=== PATIENT | female | born 1940 | race Two or more races ===

== ENCOUNTER 2024-10-15 11:34 | Emergency (ER) | payer MEDICARE, SELFPAY ==
[2024-10-15 11:35] VITALS: BMI 45.0
--- NOTE | 2024-10-15 12:09 | EKG_ITS ---
[facility] Test Date: 2024-10-15 Pat Name: DISHA JIMENEZ Department: Room: - Gender: Female [employer]: : [id number] Requested By: Shan Cortes Order Number: [id number] Reading MD: Shan Cortes Measurements Intervals [place] Rate: 74 P: 35 KS: 144 QRS: 12 QRSD: 91 T: 45 QT: 365 QTc: 407 Interpretive Statements SINUS RHYTHM Compared to ECG 09/19/2023 06:06:26 Atrial fibrillation no longer present ST (T wave) deviation no longer present /store/S0/[id number]/ecg/[id number].pdf
--- NOTE | 2024-10-15 12:09 | XR_ITS ---
Examination: AP chest single view Technique one AP upright portable chest single view Exam date and time: 12/13/2024 1245 hrs. Comparison September 19, 2023 Indications: Increasing shortness of breath beginning 2 days ago. Findings: Gudl-[id number] heart failure Moderate enlargement cardiac contour Prominent vascular congestion with perihilar edema Consider superimposed pneumonia right lung base Impression: Einf-bt-nizkoyat heart failure Consider superimposed pneumonia right lung base
--- NOTE | 2024-10-15 12:10 | PD.EDADULT ---
ED General RME/HPI General Chief complaint: Shortness of Breath/Dyspnea Stated complaint: SOB, cough Time Seen by Provider: 10/15/24 12:08 Arrival date/time: 10/15/24 11:34 CC: Shortness of breath HPI patient has had 2 days of shortness of breath has a history of asthma took her rescue inhaler but still continues to be short of breath. Dr. Parikh is her PCP Dr. Wallace is her student services dean. Patient denies any chest pain does not state that she has a fever but the head did not feel warm to touch. Patient is awake alert oriented with subtle expiratory wheezing. No tachypnea. Related Data Home Medications ?Medication ?Instructions ?Recorded ?Confirmed furosemide 40 mg tablet (Lasix) 40 mg PO DAILY 09/19/23 11/20/23 tiotropium bromide 1.25 1.25 puff inhalation DAILY 09/19/23 11/20/23 mcg/actuation mist for inhalation (Spiriva Respimat) albuterol sulfate 90 mcg/actuation 1 inh inhalation QID PRN Shortness 11/20/23 11/20/23 aerosol inhaler Of Breath amiodarone 200 mg tablet 200 mg PO DAILY 11/20/23 11/20/23 apixaban 5 mg tablet (Eliquis) 2.5 mg PO BID 11/20/23 11/20/23 Previous Rx's ?Medication ?Instructions ?Recorded omeprazole 40 mg capsule,delayed 40 mg PO QDAY #30 caps 09/23/23 release doxycycline hyclate 100 mg capsule 100 mg PO QDAY #14 caps 10/15/24 Allergies Allergy/AdvReac Type Severity Reaction Status Date / Time codeine Allergy Unknown Verified 11/20/23 14:26 Penicillins Allergy Unknown Verified 11/20/23 14:26 Review of Systems Review of Systems Narrative Review of Systems: GEN: No fever, no chills, no weight loss EYES: No discharge, no visual changes, no pain HEENT: No ear pain, no congestion, no sore throat PULM: + shortness of breath, no cough, no congestion, +wheezing CV: No chest pain, no dyspnea on exertion, no palpitations GI: No nausea, no vomiting, no diarrhea, no pain, no constipation : No frequency, no urgency, no dysuria MUSC/SKEL: No joint pain, no back pain SKIN: No rash PSYCH: No hallucinations, no depression HEME/LYMPH: No easy bleeding or bruising tendencies NEURO: No weakness, no headache ED Exam Narrative Physical exam: [General: Obese not in any acute distress Head normocephalic HEENT: Within acceptable limits Neck is supple nontender Chest equal chest rise nontender to palpation Respiratory: Subtle end expiratory wheezing, no nasal flaring hand washer muscle work no tachypnea. CV: Rate rhythm is regular no murmurs rubs or clicks Abdomen is distended secondary to body habitus soft nontender no masses positive bowel sounds all 4 quadrants Back: No CVA tenderness no spinous process tenderness from cervical spine thoracic and lumbar spine Skin: Intact no petechiae rash induration ulceration or crepitus Extremities: Moving all extremity against resistance cap refill less than 2 seconds neurosensory intact Neuro: Awake alert oriented x3 Glascow coma 15 no focal deficits] Course Quality Measures none Orders Category Date Time Status EKG (ED ONLY) *Do not use* NOW Care 10/15/24 12:09 Completed EKG (ED Only) Stat Exams 10/15/24 12:09 Draft XR chest 1V Stat Exams 10/15/24 12:09 Completed B-Type Natriuretic Peptide Stat Lab 10/15/24 12:52 Completed CBC Stat Lab 10/15/24 12:52 Completed Comprehensive Metabolic Panel Stat Lab 10/15/24 12:52 Completed Drug Screen,Urine Stat Lab 10/15/24 12:45 Completed LDH (Lactate Dehydrogenase) Stat Lab 10/15/24 12:52 Completed Magnesium Stat Lab 10/15/24 12:52 Completed Partial Thromboplastin Time Stat Lab 10/15/24 12:52 Completed Prothrombin Time with INR Stat Lab 10/15/24 12:52 Completed Troponin I Stat Lab 10/15/24 12:52 Completed Urinalysis Stat Lab 10/15/24 12:45 Completed Albuterol/Ipratr Rt Sandra [Duoneb Rt Sandra] Med 10/15/24 12:09 Discontinued 3 ml INH X1 ONE cefTRIAXone [Rocephin] 1,000 mg Med 10/15/24 13:55 Discontinued Lidocaine 1% 20 ml [Xylocaine 1% 20 ML] 2.1 ml IM X1 Vital Signs Vital signs: Vital Signs Temperature 98.4 F 10/15/24 12:12 Pulse Rate 75 10/15/24 12:12 Respiratory Rate 18 10/15/24 12:12 Blood Pressure 196/93 H 10/15/24 12:12 Pulse Oximetry (%) 98 10/15/24 12:12 Oxygen Delivery Method Room Air 10/15/24 12:12 [facility] Patient data External records reviewed:: [facility] previous records Clinical information provided by:: patient Social determinants that could affect healthcare access:: none Patient has the following chronic illnesses:: Asthma CHF How is presenting disease/condition affected by chronic disease/condition?: exacerbated by Evaluation data The following diagnostics were reviewed and interpreted by me:: lab results, radiology exam(s) and EKG tracing(s) Lab and/or radiology exams considered but not ordered:: EKG performed at 1218 shows a ventricular rate of 74 MO interval 144 QRS of 91 QTc of 393 this is a normal sinus rhythm. CBC shows no leukocytosis stable anemia of 10 and 31. CMP shows no significant electrolyte imbalances BUN is elevated 29 however this is commensurate with prior lab draws. Creatinine is unremarkable no transaminitis or T. bili elevation. Troponin is 0.023 BNP is mildly elevated. Chest x-rays interpreted by me read by radiology shows mild heart failure with a probable superimposed pneumonia. The patient has been mildly tachypneic but no anemia fever leukocytosis at this time given the patient's age and chronic conditions patient will be started on antibiotics and discharged home. Interpretation Summary: Pneumonia shortness of breath Medications Medications considered but not ordered:: None Medication administrations:: Medication Administration History Discontinued Medications Albuterol/Ipratropium (Albuterol/Ipratropium (Duoneb) Rt Sandra 3 Ml Nebu) 3 ml INH X1 ONE Stop: 10/15/24 12:10 Last Admin: 10/15/24 13:59 Dose: 3 ml Documented By: AA Ceftriaxone Sodium 1,000 mg/ (Lidocaine HCl 2.1 ml) 0 mg IM X1 ONE Stop: 10/15/24 13:56 Last Admin: 10/15/24 14:51 Dose: 1,000 mg Documented By: None Consultations Consultation(s) initiated? (list below): No Diagnosis Differential Diagnosis ED Complaint MDM: Pneumonia CHF COPD Most likely diagnosis given after review of the tests above:: Pneumonia Admission Indicated Admission indicated?: not indicated Explain why admission is indicated or not indicated:: Stable for outpatient follow-up Admission Request Was there a request for admission?: No Disposition Plan Disposition Plan: Discharge Discharge Attestation Discharge Attestation: The patient and all family members were given an opportunity to ask questions and understood the discharge instructions. Discharge instructions specifically effects, indications for sooner follow up or return to the emergency department, and the expected course of current diagnosis. Patient condition: Stable Medical Decision Making Differential Diagnosis Differential Diagnosis: Pneumonia CHF COPD Lab Data 10/15/24 12:52 10/15/24 12:52 Labs: Lab Results 10/15/24 10/15/24 Range/Units 12:45 12:52 WBC 6.0 (3.6-11.0) Thou/mm3 RBC 3.34 L (4.00-5.20) Miln/mm3 Hgb 10.1 L (12.0-16.0) g/dL Hct 31.5 L (36.0-46.0) % MCV 94 (80-100) fL MCH 30.2 (25.0-35.0) pg MCHC 32.1 (31.0-37.0) g/dl RDW Std Deviation 43.9 (36.4-46.3) fL Plt Count 173 (140-440) Thou/mm3 Neut % (Auto) 53 (37-80) % Lymph % (Auto) 35 (10-50) % Holt % (Auto) 6 (0-12) % Eos % (Auto) 6 (0-10) % Baso % (Auto) 1 (0-2.5) % Neut # (Auto) 3.2 (1.8-7.7) Thou/mm3 Lymph # (Auto) 2.1 (1.0-4.8) Thou/mm3 Holt # (Auto) 0.4 (0.0-0.8) Thou/mm3 Eos # (Auto) 0.3 (0.0-0.5) Thou/mm3 Baso # (Auto) 0.0 (0.0-0.2) Thou/mm3 Immature Gran # (Auto) 0.01 H (0.00-0.00) Thou/mm3 Absolute Nucleated RBC 0.00 (0.00-0.00) Thou/mm3 Immature Gran % 0 (0-0) % Nucleated RBC % 0 (0) /100 WBC PT 10.8 (9.0-12.2) Seconds INR 1.0 (0.9-1.3) APTT 29.6 (22.0-36.0) Seconds Sodium 139 (136-145) mMol/L Potassium 4.6 (3.4-5.1) mMol/L Chloride 106 (98-107) mMol/L Carbon Dioxide 24.2 (20.0-31.0) mMol/L Anion Gap 9 (7-16) BUN 26 H (9-23) mg/dL Creatinine 0.9 (0.6-1.3) mg/dL Estim Creat Clear Calc 47.0 L (>60) mL/min eGFR > 60 (60 - ) See Note BUN/Creatinine Ratio 29 H (12-20) Ratio Glucose 81 (74-106) mg/dL Calculated Osmolality 281 (275-295) Calcium 10.4 (8.3-10.6) mg/dL Corrected Calcium 10.4 H (8.5-10.1) mg/dL Magnesium 2.2 (1.6-2.6) mg/dL Total Bilirubin 0.6 (0.3-1.2) mg/dL AST 19 (0-34) U/L ALT 17 (10-49) U/L Alkaline Phosphatase 78 (46-116) U/L Lactate Dehydrogenase 230 (120-246) U/L Troponin I 0.023 (0.0-0.045) ng/mL B-Natriuretic Peptide 244 H (0-100) pg/mL Total Protein 7.6 (5.7-8.2) gm/dL Albumin 4.8 (3.4-4.8) gm/dL Globulin 2.8 (2.3-3.5) gm/dL Albumin/Globulin Ratio 1.7 (1.2-2.2) Ur Collection Type Clean Catch Urine Color Colorless A (Lt Yel-Yel) Urine Clarity Clear (Clear/Hazy) Urine pH 6.5 (5.0-7.0) Ur Specific [place] 1.015 (1.001-1.035) Urine Protein 1+ A (Neg - Trace) Urine Glucose (UA) Negative (Negative) Urine Ketones Negative (Negative) Urine Blood Trace (Negative) Urine Nitrite Negative (Negative) Urine Bilirubin Negative (Negative) Urine Urobilinogen (Auto) Negative (0.0-1.0) mg/dL Ur Leukocyte Esterase Negative (Negative) Urine RBC 4 H (0-3) /hpf Urine WBC 3 (0-5) /hpf Ur Squamous Epith Cells 2 (0-5) /hpf Urine Bacteria None (None) Urine Opiates Screen Negative (Negative) Urine Fentanyl Screen Negative (Negative) Ur Barbiturates Screen Negative (Negative) U Amphetamin/Meth Scrn Negative (Negative) U Benzodiazepines Scrn Negative (Negative) U Cocaine Metab Screen Negative (Negative) U Marijuana (THC) Screen Negative (Negative) Discharge Plan Plan Patient Disposition: HOME (Self Care) Patient condition on transfer: Stable Prescriptions/Referrals Prescriptions/Med Rec: New doxycycline hyclate 100 mg capsule 100 mg PO QDAY Qty: 14 0RF No Action furosemide [Lasix] 40 mg tablet 40 mg PO DAILY Patient Comments: TAKE 1 TABLET BY MOUTH ONCE A DAY FOR LEG SWELLING FOR 30 DAYS Rx Instructions: x2 week Spiriva Respimat 1.25 mcg/actuation mist 1.25 puff INHALATION DAILY Patient Comments: INHALE 2 PUFFS BY MOUTH EVERY DAY Rx Instructions: daily omeprazole 40 mg capsule,delayed release(DR/EC) 40 mg PO QDAY Qty: 30 2RF amiodarone 200 mg tablet 200 mg PO DAILY Patient Comments: TAKE 1 TABLET BY MOUTH EVERY DAY Eliquis 5 mg tablet 2.5 mg PO BID Patient Comments: TAKE 1 TABLET BY MOUTH TWICE A DAY albuterol sulfate 90 mcg/actuation Hfa Aerosol Inhaler 1 inh INHALATION QID PRN (Reason: Shortness Of Breath) Referrals: Gen Parikh MD [Primary Care Provider] - In 1 week Problem List Clinical Impression: Pneumonia, Shortness of breath Patient/Caregiver Discharge Instructions Education Materials: ED Pneumonia (Adult) Additional Instructions: Take the medications as prescribed, follow-up with your primary care doctor in 3 to 4 days if there is worsening of symptoms in spite of the medications return the emergency room immediately for further evaluation. Print Language: Armenian Stand Alone Forms: Tanesha Award Info., Patient Portal Info Letter PA/FOOD COURT TEAM MEMBER Supervising Physician PA/FOOD COURT TEAM MEMBER Supervising Physician: Shan Rush ENP
[2024-10-15 12:12] VITALS: BP 196/93; PULSE 75; RESP 18; TEMP 36.9; O2SAT 98
[2024-10-15 13:06] LABS: Collection Type, Urine Clean Catch
[2024-10-15 13:13] LABS: Basophils % (Auto) 1 % (0-2.5); Eosinophils # (Auto) 0.3 Thou/mm3 (0.0-0.5); Eosinophils % (Auto) 6 % (0-10); Hematocrit 31.5 % (36.0-46.0); Hemoglobin 10.1 g/dL (12.0-16.0); Immature Granulocytes % (Auto) 0 % (0-0); Immature Granulocytes Auto 0.01 Thou/mm3 (0.00-0.00); Lymphocytes # (Auto) 2.1 Thou/mm3 (1.0-4.8); Lymphocytes % (Auto) 35 % (10-50); Mean Corpuscular HGB Conc 32.1 g/dl (31.0-37.0); Mean Corpuscular Hemoglobin 30.2 pg (25.0-35.0); Mean Corpuscular Volume 94 fL (80-100); Monocytes # (Auto) 0.4 Thou/mm3 (0.0-0.8); Monocytes % (Auto) 6 % (0-12); Neutrophils # (Auto) 3.2 Thou/mm3 (1.8-7.7); Neutrophils % (Auto) 53 % (37-80); Nucleated Red Blood Cell % 0 /100 WBC (0); Platelet Count 173 Thou/mm3 (140-440); RDW Standard Deviation 43.9 fL (36.4-46.3); Red Blood Count 3.34 Miln/mm3 (4.00-5.20)
[2024-10-15 13:22] LABS: Partial Thromboplastin Time 29.6 Seconds (22.0-36.0); Prothrombin Time 10.8 Seconds (9.0-12.2)
[2024-10-15 13:24] LABS: B-Type Natriuretic Peptide 244 pg/mL (0-100)
[2024-10-15 13:28] LABS: Alanine Aminotransferase 17 U/L (10-49); Albumin, Serum 4.8 gm/dL (3.4-4.8); Albumin/Globulin Ratio 1.7 (1.2-2.2); Alkaline Phosphatase 78 U/L (46-116); Anion Gap 9 (7-16); Aspartate Amino Transferase 19 U/L (0-34); BUN/Creatinine Ratio 29 Ratio (12-20); Bilirubin,Total 0.6 mg/dL (0.3-1.2); Blood Urea Nitrogen 26 mg/dL (9-23); Calcium 10.4 mg/dL (8.3-10.6); Calcium (Corrected) 10.4 mg/dL (8.5-10.1); Carbon Dioxide 24.2 mMol/L (20.0-31.0); Chloride 106 mMol/L (98-107); Creatinine (Component) 0.9 mg/dL (0.6-1.3); Globulin 2.8 gm/dL (2.3-3.5); Glucose 81 mg/dL (74-106); LDH (Lactate Dehydrogenase) 230 U/L (120-246); Magnesium 2.2 mg/dL (1.6-2.6); Osmolality,Calculated 281 (275-295); Potassium 4.6 mMol/L (3.4-5.1); Sodium 139 mMol/L (136-145); Total Protein 7.6 gm/dL (5.7-8.2); Troponin I 0.023 ng/mL (0.0-0.045); eGFR > 60 See Note
[2024-10-15 13:29] LABS: Amphetamine/Methamp Scrn,U Negative (Negative); Barbiturate Screen,Urine Negative (Negative); Benzodiazepines Screen,Urine Negative (Negative); Benzoylecgonine Screen, Ur Negative (Negative); Fentanyl Screen,Urine Negative (Negative); Opiate Screen,Urine Negative (Negative); THC Screen,Urine Negative (Negative)
[2024-10-15 13:32] LABS: Bilirubin,Urine Negative (Negative); Blood,Urine Trace (Negative); Clarity,Urine Clear (Clear/Hazy); Color,Urine Colorless (Lt Yel-Yel); Glucose, Urine Negative (Negative); Ketones,Urine Negative (Negative); Leukocyte Esterase,Urine Negative (Negative); Nitrite,Urine Negative (Negative); PH,Urine 6.5 (5.0-7.0); Protein,Urine 1+ (Neg - Trace); RBC,Urine 4 /hpf (0-3); Specific Gravity,Urine 1.015 (1.001-1.035); Squamous Epithelial Cell,Urine 2 /hpf (0-5); Urobilinogen,Urine Negative mg/dL (0.0-1.0); WBC,Urine 3 /hpf (0-5)
[2024-10-15] MEDS: ALBUTEROL/IPRATROPIUM (Duoneb) RT SOL 3 ML NEBU INH (13:59)
[2024-10-15 14:02] VITALS: PULSE 69; RESP 18; O2SAT 98
[2024-10-15] MEDS: cefTRIAXone 1,000 MG, LIDOCAINE 1% 20 ML 2.1 ML IM (14:51)
== END 2024-10-15 15:00 | disposition home or self-care (01) ==
PROVIDERS: Registered Nurse General Practice; Emergency Provider Emergency Medicine; PCP Family Medicine
DX: J18.9 Pneumonia, unspecified organism (principal)
CPT/HCPCS: 36415; 71045; 80053; 80307; 81001; 83615; 83735; 83880; 84484; 85025; 85610; 85730; 93005; 94640; 96372; 99283; A9270; J0696; J3490